=== PATIENT | female | born 1985 ===

== ENCOUNTER 2021-07-10 10:45 | Emergency (ER) | payer OTHER ==
[2021-07-10 11:36] LABS: BILIRUBIN NEGATIVE (NEGATIVE); BLOOD NEGATIVE Ery/uL (NEGATIVE); CLARITY CLEAR (CLEAR); COLOR YELLOW (YELLOW); GLUCOSE (U) NORMAL (NORMAL); LEUKOCYTES NEGATIVE Leu/uL (NEGATIVE); NITRITE NEGATIVE (NEGATIVE); PROTEIN NEGATIVE (NEGATIVE); UROBILINOGEN 0.2 mg/dL (0.2-1.0)
[2021-07-10 11:43] LABS: BILIRUBIN - TOTAL 0.4 mg/dL (0.2-1.0); BUN/CREAT RATIO (CALC) 13.3 RATIO; CREATININE 0.75 mg/dL (0.51-0.95); GLOBULIN (CALCULATION) 3.9 g/dL; POTASSIUM 3.8 mmol/L (3.5-5.1); TOTAL PROTEIN 7.9 g/dL (6.4-8.2)
[2021-07-10 11:44] LABS: BASOPHIL 0.6 % (0-2); EOSINOPHIL 1.1 % (0-5); HCT 46.9 % (37.0-47.0); HGB 14.3 g/dl (12.5-16.0); LYMPHOCYTE 11.7 % (15-48); MCH 25.1 pg (25.0-31.0); MCHC 30.5 g/dL (32.0-36.0); MCV 82.3 fL (78.0-100.0); MONOCYTE 9.6 % (0-12); MPV 10.6 fL (6.0-9.5); NEUTROPHIL 76.3 % (41-80); NRBC 0; PLT 294 K/uL (150-400); RDW 15.2 % (11.5-14.0); WBC 12.5 K/uL (4.0-10.5)
[2021-07-10] MEDS ORDERED: METRONIDAZOLE500 M1 PO (13:31)
[2021-07-10] MEDS ORDERED: CIPRO500 MG PO (13:31)
[2021-07-10] MEDS ORDERED: ONDANSETRON ODT4 MG PO (14:02)
[2021-07-10] MEDS ORDERED: PERCOCET 10-321 EACH PO (14:02)
== END 2021-07-10 14:27 | disposition home or self-care (01) ==
LOC: FER 10:45
PROVIDERS: Internal Medicine
DX: K57.32 Diverticulitis of large intestine without perforation or abscess without bleeding (principal); Z90.89 Acquired absence of other organs; Z91.030 Bee allergy status
CPT/HCPCS: 36415; 76830; 80053; 81003; 82150; 83690; 85025; J1885; J2405